=== PATIENT | male | born 1995 | race Caucasian/White ===

== ENCOUNTER 2022-08-22 14:18 | Emergency (ER) | payer OTHER, SELFPAY ==
[2022-08-22 14:31] VITALS: BP 154/82; PULSE 90; RESP 16; TEMP 36.6; O2SAT 100
--- NOTE | 2022-08-22 14:34 | ED.SKABFB ---
HPI - Skin/Abscess/Foreign Bdy General Chief complaint: Skin/Abscess/Foreign Body Stated complaint: RASH Time Seen by Provider: 08/22/22 14:34 Source: patient Mode of arrival: ambulatory Limitations: no limitations History of Present Illness HPI narrative: 26 yo M presents stating he was getting haircut today and gil told him he may have ringworm to his scalp. States he has been itchy. All systems reviewed and negative except as noted above. Related Data Allergies Allergy/AdvReac Type Severity Reaction Status Date / Time No Known Allergies Allergy Verified 08/22/22 14:39 Review of Systems Review of Systems: CONSTITUTIONAL: Denies fever, chills, or sweats. EYES: Denies visual changes, redness, or discharge. ENT: Denies rhinorrhea, congestion, sore throat, or otalgia. CARDIOVASCULAR: Denies chest pain, palpitations, or edema. RESPIRATORY: Denies cough or dyspnea. GASTROINTESTINAL: Denies abdominal pain, nausea, vomiting, or diarrhea. GENITOURINARY: Denies dysuria or hematuria. SKIN: Reports rash and itching to scalp. MUSCULOSKELETAL: Denies back pain, joint pain, or myalgia. NEUROLOGIC: Denies headache, numbness, or weakness. PSYCHIATRIC: Denies anxiety or depression. All other systems reviewed are negative, except as documented in HPI. PMFSH Comments At time of signature, agree with nursing past medical, surgical, social and family history. There is no relevant family history pertinent to the presenting complaint. Exam Narrative: GENERAL: This is a well-nourished, well-developed patient, in no apparent distress. HEAD: normocephalic, atraumatic. multiple erythematous circular lesions with central clearing to scalp EYES: PERRL. Sclera clear/white. Vision is grossly intact. EARS: External ears normal NOSE: External nose normal NECK: Neck supple, non-tender without lymphadenopathy, masses or thyromegaly. CARDIOVASCULAR: Regular rate and rhythm without murmurs, gallops, or rubs. RESPIRATORY: Clear to auscultation. Breath sounds equal bilaterally. No wheezes, rales, or rhonchi. SKIN: warm, Dry, intact with no suspicious lesions or rash, good texture and turgor. NEURO: awake, alert, and oriented to person, place and time. There were no obvious focal neurologic abnormalities. EXTREMITIES: No joint tenderness, effusion, or edema noted. Course Course Level of Care: Express Care Visit Vital Signs Vital signs: Vital Signs Temperature 36.6 C 08/22/22 14:31 Pulse Rate 90 08/22/22 14:31 Respiratory Rate 16 08/22/22 14:31 Blood Pressure 154/82 H 08/22/22 14:31 Pulse Oximetry 100 08/22/22 14:31 Temperature 36.6 C 08/22/22 14:31 Pulse Rate 90 08/22/22 14:31 Respiratory Rate 16 08/22/22 14:31 Blood Pressure 154/82 H 08/22/22 14:31 Pulse Oximetry 100 08/22/22 14:31 Reviewed MDM - Skin/Abscess/Foreign Bdy MDM Narrative Medical decision making narrative: Patient is aware of diagnosis, understands and agrees to treatment plan. Anticipatory guidance given. Patient agrees to follow-up as directed and is aware of reasons to seek care at the emergency department. Portions of this record may have been created with voice recognition software Discharge Plan Discharge Clinical Impression: Tinea capitis Patient Disposition: Home, Self-Care Condition: Stable Instructions: Tinea Corporis (ED) Additional Instructions: Take medication as prescribed. If not improved after end of treatment, follow up with dermatology. [facility] [phone] Prescriptions: New fluconazole 200 mg tablet 200 mg PO WEEKLY 56 Days Qty: 8 0RF Follow-up/Referrals: PHYSICIAN,ENVIRONMENTAL PROTECTION OFFICER [Primary Care Provider] - Time of Disposition: 14:42
== END 2022-08-22 14:44 | disposition home or self-care (01) ==
PROVIDERS: Emergency Provider Nurse Practitioner Family
DX: B35.0 Tinea barbae and tinea capitis (principal)
CPT/HCPCS: 99213; G0463